=== PATIENT | female | born 1945 | race Caucasian/White ===

== ENCOUNTER 2016-09-28 06:07 | Emergency (ER) | payer MEDICARE ==
[2016-09-28 07:13] LABS: ABSOLUTE NEUTROPHIL COUNT 4.5 K/mm3 (1.8-7.7); BASO # 0.1 K/mm3 (0.0-0.2); EOS # 0.3 (0.0-0.5); EOS % 3.9 % (0.9-2.9); HEMATOCRIT 47.9 % (37.0-47.0); HEMOGLOBIN 15.4 gm/l (12.0-16.0); IMM NEUT% 0.4 % (0-1); LYMPH # 2.6 (1.0-4.8); MEAN CELL VOLUME 93.9 fl (81.0-99.0); MEAN CORPUSCULAR HEMOGLOBIN 30.2 pg (27.0-31.0); MEAN CORPUSCULAR HGB CONC 32.2 g/dl (33.0-37.0); MEAN PLATELET VOLUME 11.2 fl (7.4-10.4); MONO # 0.7 (0.0-0.8); NEUT % 54.7 % (43-75); PLATELET COUNT 285 K/mm3 (130-400); RED CELL DISTRIBUTION WIDTH 13.4 % (11.5-14.5)
[2016-09-28 07:28] LABS: ALB/GLOB RATIO 1.1 (>1.0); ALBUMIN 3.7 gm/dL (3.5-5.7); CALCIUM 9.1 mg/dL (8.6-10.3)
[2016-09-28] MEDS ORDERED: DIAZEPAM 5 MG TABLET ONE (07:35)
[2016-09-28 09:03] LABS: SPECIFIC GRAVITY 1.025 (1.001-1.030); URINE BILIRUBIN NEGATIVE (NEGATIVE); URINE BLOOD NEGATIVE (NEGATIVE); URINE GLUCOSE (UA) NEGATIVE (NEGATIVE); URINE LEUKOCYTE ESTERASE TRACE (NEGATIVE); URINE NITRITE NEGATIVE (NEGATIVE); URINE PROTEIN 1+ (NEGATIVE); URINE UROBILINOGEN NORMAL (0-1 mg/dl)
[2016-09-28 09:05] LABS: URINE APPEARANCE CLEAR; URINE COLOR YELLOW
--- NOTE | 2016-09-28 09:12 | RAD ---
CHEST - 2 VIEWS COMPARISON: Chest 2 views, 06/02/2014 HISTORY: Chronic cough. FINDINGS: Views: Frontal and lateral chest Lungs: Normal Heart and vessels: Normal Trachea and bronchi: Normal Mediastinum and ashley: Normal Costophrenic sulci: Normal Chest wall and bones: Normal. Upper abdomen: Cholecystectomy clips. IMPRESSION: Negative 2 view chest.
[2016-09-28 09:14] LABS: URINE BACTERIA FEW; URINE MUCUS 1+; URINE RBC 0 /hpf
== END 2016-09-28 09:39 | disposition home or self-care (01) ==
LOC: ED 06:07
DX: R06.02 Shortness of breath (principal)
CPT/HCPCS: 85025; 80053; 84484; 81001; 71020; 99284 ×2; A9270